=== PATIENT | male | born 1960 | race African-American/Black ===

== ENCOUNTER 2023-08-24 13:10 | Inpatient (IN) | payer OTHER ==
[~2023-08-24] VITALS: Ht 185.4 cm; Wt 149.8 kg
[~2023-08-24 13:10] MED LIST: ALBU18HF12 IH; APIX5TAB PO; ARIP20TA21 PO; ATOR20TA PO; BUDE10.2 IH; FERR325T23 PO; FLUO20CA36 PO; FURO20 PO; GABA-1181 PO; GLIP5TAB16 PO; LOSA-381 PO; METO-558 PO; METO25XL PO; MONT-35 PO; MULT-1203 PO; QUET150T15 PO
[2023-08-24 13:19] VITALS: PULSE 89; RESP 23; O2SAT 96
[2023-08-24 13:30] VITALS: PULSE 103; RESP 26; O2SAT 91
[2023-08-24] MEDS: IPRATROPIUM BROMIDE 0.5 MG/2.5 ML NEB SOLUTION NEB ONE (13:30)
[2023-08-24] MEDS: ALBUTEROL SULFATE 2.5 MG/0.5 ML 5 ML NEB SOLUTION NEB ONE (13:30)
[2023-08-24] MEDS: MethylPREDNISolone SOD SUCC 125 MG/2 ML VIAL IVP ONE (13:32)
[2023-08-24] MEDS: FUROSEMIDE 40 MG/4 ML VIAL IVP ONE (13:33)
[2023-08-24 13:38] LABS: BASOPHILS % (AUTO) 0.5 % (0.0-2.0); EOSINOPHILS % (AUTO) 0.4 % (1.0-6.0); HEMATOCRIT 37.9 % (41-53); HEMOGLOBIN 11.9 g/dL (13.5-17.5); LYMPHOCYTES # (AUTO) 0.8 K/uL (1.0-4.8); LYMPHOCYTES % (AUTO) 15.3 % (22.0-44.0); MEAN CORPUSCULAR HEMOGLOBIN 28.5 pg (26.0-34.0); MEAN CORPUSCULAR HGB CONC 31.4 G/dL (31.0-37.0); MEAN CORPUSCULAR VOLUME 91 fL (80-100); MONOCYTES # (AUTO) 0.6 K/uL (0.1-1.0); MONOCYTES % (AUTO) 10.2 % (2.0-9.0); NEUTROPHILS % (AUTO) 73.6 % (40.0-70.0); PLATELET COUNT (AUTO) 150 K/uL (150-450); RED BLOOD CELL COUNT(AUTO) 4.17 MIL/uL (4.50-5.90); RED CELL DISTRIBUTION WIDTH 17.1 % (11.5-14.5); WHITE BLOOD COUNT (AUTO) 5.4 K/uL (4.5-11.0)
[2023-08-24 13:46] LABS: CALCIUM, TOTAL 9.2 mg/dL (8.8-10.5); CREATININE 2.72 mg/dL (0.60-1.30)
[2023-08-24 13:49] LABS: INR 1.3 (0.9-1.1); PROTHROMBIN TIME 12.9 SEC (9.4-11.6)
[2023-08-24 13:54] LABS: LACTIC ACID 1.3 mmol/L (0.4-2.0)
[2023-08-24 13:57] LABS: TROPONIN I-HIGH SENSITIVITY 1542 ng/L (<76)
[2023-08-24 14:00] VITALS: PULSE 98; RESP 27; O2SAT 99
[2023-08-24 14:00] LABS: ALCOHOL, BLOOD (SERUM) < 3 mg/dL (0-10)
[2023-08-24 14:11] LABS: ALBUMIN 3.2 g/dL (3.4-5.0); BILIRUBIN,TOTAL 1.7 mg/dL (0.1-1.0); TOTAL PROTEIN, SERUM 7.2 g/dL (6.4-8.2)
[2023-08-24 14:11] LABS: INFLUENZA A-RTPCR,COMBO NEGATIVE (NEGATIVE); INFLUENZA B-RTPCR,COMBO NEGATIVE (NEGATIVE); RESPIRATORY SYNCYTIAL VRS-PCR NEGATIVE (NEGATIVE); SARS COVID19 RTPCR, COMBO NEGATIVE (NEGATIVE)
[2023-08-24] MEDS ORDERED: HEPARIN SODIUM,PORCINE 5,000 UNITS/ML VIAL IVP PRN ×2 (14:30)
[2023-08-24] MEDS: HEPARIN SODIUM 25000 UNITS/D5W 250 ML IV PRN (14:45)
[2023-08-24 14:54] LABS: ALCOHOL, URINE DRUG SCREEN NEGATIVE (NEGATIVE); AMPHET/METH SCREEN,URINE NEGATIVE (NEGATIVE); BARBITURATE SCREEN, URINE NEGATIVE (NEGATIVE); BENZODIAZEPINES SCREEN,URINE NEGATIVE (NEGATIVE); CANNABINOID SCREEN,URINE POSITIVE (NEGATIVE); COCAINE SCREEN,URINE NEGATIVE (NEGATIVE); METHADONE SCREEN, URINE NEGATIVE (NEGATIVE); OPIATE SCREEN,URINE NEGATIVE (NEGATIVE); PHENCYCLIDINE SCREEN,URINE NEGATIVE (NEGATIVE)
[2023-08-24 15:01] LABS: APPEARANCE,URINE TURBID (CLEAR); COLOR,URINE DARK YELLOW (YELLOW); GLUCOSE, URINE (UA) 70-100 mg/dL (NEGATIVE); KETONES,URINE NEGATIVE (NEGATIVE); LEUKOCYTE ESTERASE ,URINE NEGATIVE (NEGATIVE); NITRATE,URINE NEGATIVE (NEGATIVE); OCCULT BLOOD,URINE TRACE (NEGATIVE); PROTEIN,URINE >600,SEE CONFIRM mg/dL (NEGATIVE); SPECIFIC GRAVITIY, URINE 1.032 (1.003-1.030)
[2023-08-24 15:04] LABS: BILIRUBIN,URINE SMALL (NEGATIVE)
[2023-08-24 15:16] LABS: SULFOSALICYLIC ACID,URINE 4+ (Negative)
[2023-08-24 15:18] LABS: BACTERIA,URINE Few /HPF (None Seen); RBC,URINE 0-2 /HPF (0-2); SQUAMOUS EPITHELIAL CELL,UR Few /LPF (None Seen); WBC,URINE 0-2 /HPF (0-5)
[2023-08-24 15:19] LABS: COARSE GRANULAR CASTS,URINE 0-2 /LPF (None Seen)
[2023-08-24 17:15] VITALS: BP 124/80; PULSE 98; RESP 18; TEMP 98.1
[2023-08-24 18:31] LABS: TROPONIN I-HIGH SENSITIVITY 1969 ng/L (<76)
[2023-08-24] MEDS ORDERED: PNEUMOCOCCAL VACCINE POLYVALENT 0.5 ML SYRINGE [PPSV23] IM. ONE (19:30)
[2023-08-24 20:00] VITALS: BP 132/85; PULSE 91; RESP 16; TEMP 97.8
[2023-08-24] MEDS ORDERED: MAGNESIUM HYDROXIDE SUSPENSION 30 ML UDCUP PO PRN (22:00)
[2023-08-24] MEDS ORDERED: ONDANSETRON HCL 4 MG/2 ML VIAL IVP PRN (22:00)
[2023-08-24] MEDS ORDERED: MORPHINE SULFATE 2 MG/ML SYRINGE IVP PRN (22:00)
[2023-08-24] MEDS ORDERED: BISACODYL 10 MG RECTAL RECTAL SUPPOSITORY PR PRN (22:00)
[2023-08-24] MEDS ORDERED: ZOLPIDEM TARTRATE 5 MG TABLET PO PRN (22:00)
[2023-08-24] MEDS ORDERED: DEXTROSE 50%-WATER 25 GM/50 ML SYRINGE IVP PRN (22:00)
[2023-08-24] MEDS ORDERED: HYDROCODONE/ACETAMINOPHEN 5-325 MG TABLET PO PRN (22:00)
[2023-08-24] MEDS ORDERED: ACETAMINOPHEN 325 MG TABLET PO PRN (22:00)
[2023-08-25] VITALS (11 sets, daily range): BP systolic 90–127; BP diastolic 41–79; PULSE 68–89; RESP 18–24; TEMP 97.5–98.2; O2SAT 94–99
[2023-08-25 05:06] LABS: BASOPHILS % (AUTO) 0.1 % (0.0-2.0); EOSINOPHILS % (AUTO) 0 % (1.0-6.0); HEMATOCRIT 34.2 % (41-53); HEMOGLOBIN 10.9 g/dL (13.5-17.5); LYMPHOCYTES # (AUTO) 0.3 K/uL (1.0-4.8); LYMPHOCYTES % (AUTO) 8.9 % (22.0-44.0); MEAN CORPUSCULAR HEMOGLOBIN 28.9 pg (26.0-34.0); MEAN CORPUSCULAR HGB CONC 31.8 G/dL (31.0-37.0); MEAN CORPUSCULAR VOLUME 91 fL (80-100); MONOCYTES # (AUTO) 0.2 K/uL (0.1-1.0); MONOCYTES % (AUTO) 5.5 % (2.0-9.0); NEUTROPHILS # (AUTO) 3.3 K/uL (1.8-7.7); PLATELET COUNT (AUTO) 129 K/uL (150-450); RED BLOOD CELL COUNT(AUTO) 3.77 MIL/uL (4.50-5.90); WHITE BLOOD COUNT (AUTO) 3.9 K/uL (4.5-11.0)
[2023-08-25 05:46] LABS: NEUTROPHILS % (AUTO) 85.5 % (40.0-70.0)
[2023-08-25] MEDS: GlipiZIDE 5 MG TABLET PO SCH (06:38)
[2023-08-25 07:16] LABS: CALCIUM, TOTAL 8.3 mg/dL (8.8-10.5); CREATININE 3.28 mg/dL (0.60-1.30); POTASSIUM 4.5 mmol/L (3.5-5.1)
[2023-08-25] MEDS: INSULIN LISPRO 100 UNITS/ML SQ PRN (07:20)
[2023-08-25 07:26] LABS: TROPONIN I-HIGH SENSITIVITY 1510 ng/L (<76)
[2023-08-25] MEDS: ALBUTEROL SULFATE 2.5 MG/0.5 ML NEB SOLUTION NEB PRN (08:55)
[2023-08-25] MEDS: IPRATROPIUM BROMIDE 0.5 MG/2.5 ML NEB SOLUTION NEB PRN (08:56)
[2023-08-25] MEDS ORDERED: FUROSEMIDE 40 MG/4 ML VIAL IVP SCH (09:00)
[2023-08-25] MEDS ORDERED: FUROSEMIDE 20 MG TABLET PO SCH (09:00)
[2023-08-25] MEDS: ATORVASTATIN CALCIUM 20 MG TABLET PO SCH (09:17)
[2023-08-25] MEDS: PANTOPRAZOLE SODIUM 40 MG DR TABLET PO SCH (09:17)
[2023-08-25] MEDS: GABAPENTIN 300 MG CAPSULE PO SCH (09:17)
[2023-08-25] MEDS: MONTELUKAST SODIUM 10 MG TABLET PO SCH (09:18)
[2023-08-25] MEDS: METOPROLOL SUCCINATE 50 MG ER TABLET PO SCH (09:18)
[2023-08-25] MEDS: LOSARTAN POTASSIUM 25 MG TABLET PO SCH (09:18)
[2023-08-25] MEDS: MULTIVITAMINS, THERAPEUTIC TABLET PO SCH (09:18)
[2023-08-25] MEDS: FLUoxetine HCL 20 MG CAPSULE PO SCH (09:18)
[2023-08-25] MEDS: HEPARIN SODIUM 25000 UNITS/D5W 250 ML IV PRN (10:27)
[2023-08-25] MEDS: SODIUM CHLORIDE 0.9% 250 ML IV ONE (11:27)
[2023-08-25] MEDS: FUROSEMIDE 40 MG/4 ML VIAL IVP ONE (16:55)
[2023-08-25] MEDS: MethylPREDNISolone SOD SUCC 125 MG/2 ML VIAL IVP SCH (17:52)
[2023-08-25] MEDS: HEPARIN SODIUM,PORCINE 5,000 UNITS/ML VIAL IVP PRN (17:53)
[2023-08-25] MEDS: QUEtiapine FUMARATE 50 MG ER TABLET PO SCH (21:22)
[2023-08-26] VITALS (9 sets, daily range): BP systolic 92–110; BP diastolic 55–70; PULSE 78–98; RESP 18–22; TEMP 97.1–98.1; O2SAT 94–95
[2023-08-26 01:35] LABS: GLUCOMETER DEV NAME(LOC) 5N.2C; GLUCOSE,POINT OF CARE 152 MG/DL (70-110)
[2023-08-26 01:35] LABS: GLUCOMETER DEV NAME(LOC) 5N.2C; GLUCOSE,POINT OF CARE 78 MG/DL (70-110)
[2023-08-26 01:36] LABS: GLUCOMETER DEV NAME(LOC) 5N.2C; GLUCOSE,POINT OF CARE 104 MG/DL (70-110)
[2023-08-26 01:36] LABS: GLUCOMETER DEV NAME(LOC) 5N.2C; GLUCOSE,POINT OF CARE 129 MG/DL (70-110)
[2023-08-26 06:46] LABS: BASOPHILS % (AUTO) 0.1 % (0.0-2.0); EOSINOPHILS % (AUTO) 0 % (1.0-6.0); HEMATOCRIT 33.6 % (41-53); HEMOGLOBIN 10.7 g/dL (13.5-17.5); LYMPHOCYTES # (AUTO) 0.2 K/uL (1.0-4.8); LYMPHOCYTES % (AUTO) 6.5 % (22.0-44.0); MEAN CORPUSCULAR HEMOGLOBIN 29.1 pg (26.0-34.0); MEAN CORPUSCULAR HGB CONC 31.8 G/dL (31.0-37.0); MEAN CORPUSCULAR VOLUME 91 fL (80-100); MONOCYTES # (AUTO) 0.1 K/uL (0.1-1.0); MONOCYTES % (AUTO) 1.5 % (2.0-9.0); NEUTROPHILS # (AUTO) 3.5 K/uL (1.8-7.7); PLATELET COUNT (AUTO) 122 K/uL (150-450); RED BLOOD CELL COUNT(AUTO) 3.68 MIL/uL (4.50-5.90); RED CELL DISTRIBUTION WIDTH 16.9 % (11.5-14.5); WHITE BLOOD COUNT (AUTO) 3.8 K/uL (4.5-11.0)
[2023-08-26 06:53] LABS: NEUTROPHILS % (AUTO) 91.9 % (40.0-70.0)
[2023-08-26 06:59] LABS: CALCIUM, TOTAL 7.7 mg/dL (8.8-10.5); CREATININE 4.14 mg/dL (0.60-1.30); PHOSPHORUS 6.5 mg/dL (2.5-4.9); POTASSIUM 4.5 mmol/L (3.5-5.1)
[2023-08-26 07:09] LABS: TROPONIN I-HIGH SENSITIVITY 1324 ng/L (<76)
[2023-08-26 08:25] LABS: GLUCOMETER DEV NAME(LOC) 5N.2C; GLUCOSE,POINT OF CARE 251 MG/DL (70-110)
[2023-08-26] MEDS: ASPIRIN 81 MG DR TABLET PO SCH (09:56)
[2023-08-26] MEDS: ATORVASTATIN CALCIUM 40 MG TABLET PO SCH (09:57)
[2023-08-27] VITALS: BP 116/57; PULSE 75; RESP 20
[2023-08-27 00:56] LABS: GLUCOMETER DEV NAME(LOC) 5S.2C; GLUCOSE,POINT OF CARE 276 MG/DL (70-110)
[2023-08-27 00:56] LABS: GLUCOMETER DEV NAME(LOC) 5S.2C; GLUCOSE,POINT OF CARE 273 MG/DL (70-110)
[2023-08-27 00:56] LABS: GLUCOMETER DEV NAME(LOC) 5S.2C; GLUCOSE,POINT OF CARE 283 MG/DL (70-110)
[2023-08-27 01:00] LABS: APPEARANCE,URINE HAZY (CLEAR); BILIRUBIN,URINE NEGATIVE (NEGATIVE); COLOR,URINE YELLOW (YELLOW); GLUCOSE, URINE (UA) TRACE mg/dL (NEGATIVE); KETONES,URINE NEGATIVE (NEGATIVE); LEUKOCYTE ESTERASE ,URINE NEGATIVE (NEGATIVE); NITRATE,URINE NEGATIVE (NEGATIVE); OCCULT BLOOD,URINE NEGATIVE (NEGATIVE); PROTEIN,URINE 30-70 mg/dL (NEGATIVE); SPECIFIC GRAVITIY, URINE 1.019 (1.003-1.030); UROBILINOGEN,URINE <=1.0 mg/dL (<=1.0)
[2023-08-27 01:04] LABS: CREATININE,URINE RANDOM 345.9 mg/dL (30.0-125.0); PROTEIN,URINE RANDOM 96 mg/dL (0-11.9); SODIUM,URINE RANDOM 6 mmol/l (20-110); UREA NITROGEN,URINE RANDOM 333 mg/dL (350-1000)
[2023-08-27 01:33] LABS: BACTERIA,URINE None Seen /HPF (None Seen); RBC,URINE 0-2 /HPF (0-2); SQUAMOUS EPITHELIAL CELL,UR Few /LPF (None Seen); WBC,URINE 0-2 /HPF (0-5)
[2023-08-27 04:26] VITALS: BP 113/55; PULSE 72; RESP 20
[2023-08-27 05:50] LABS: GLUCOMETER DEV NAME(LOC) 5N.2C; GLUCOSE,POINT OF CARE 206 MG/DL (70-110)
[2023-08-27 07:59] VITALS: BP 130/70; PULSE 51; RESP 18; TEMP 98
[2023-08-27 08:25] LABS: CALCIUM, TOTAL 7.7 mg/dL (8.8-10.5); CREATININE 4.76 mg/dL (0.60-1.30); MAGNESIUM 2.2 mg/dL (1.80-2.40); PHOSPHORUS 6.1 mg/dL (2.5-4.9); POTASSIUM 4.5 mmol/L (3.5-5.1)
[2023-08-27] MEDS: SODIUM CHLORIDE 0.9% 1,000 ML IV SCH (09:16)
[2023-08-27 11:15] VITALS: BP 117/72; PULSE 82; RESP 20; TEMP 97.4
[2023-08-27 14:39] VITALS: BP 114/72; PULSE 50; TEMP 97.5
[2023-08-27 19:50] VITALS: BP 114/47; PULSE 57; RESP 20; TEMP 96.8
[2023-08-27 23:10] LABS: GLUCOMETER DEV NAME(LOC) 5S.2C; GLUCOSE,POINT OF CARE 319 MG/DL (70-110)
[2023-08-27 23:10] LABS: GLUCOMETER DEV NAME(LOC) 5N.2C; GLUCOSE,POINT OF CARE 250 MG/DL (70-110)
[2023-08-27 23:10] LABS: GLUCOMETER DEV NAME(LOC) 5N.2C; GLUCOSE,POINT OF CARE 232 MG/DL (70-110)
[2023-08-28] VITALS (8 sets, daily range): BP systolic 100–169; BP diastolic 51–94; PULSE 52–114; RESP 18–22; TEMP 97.3–98.2; O2SAT 96
[2023-08-28 07:32] LABS: EOSINOPHILS % (AUTO) 0 % (1.0-6.0); HEMATOCRIT 34.1 % (41-53); HEMOGLOBIN 10.8 g/dL (13.5-17.5); LYMPHOCYTES # (AUTO) 0.2 K/uL (1.0-4.8); LYMPHOCYTES % (AUTO) 4.4 % (22.0-44.0); MEAN CORPUSCULAR HEMOGLOBIN 28.8 pg (26.0-34.0); MEAN CORPUSCULAR HGB CONC 31.7 G/dL (31.0-37.0); MEAN CORPUSCULAR VOLUME 91 fL (80-100); MONOCYTES # (AUTO) 0.1 K/uL (0.1-1.0); MONOCYTES % (AUTO) 1.8 % (2.0-9.0); NEUTROPHILS # (AUTO) 3.5 K/uL (1.8-7.7); PLATELET COUNT (AUTO) 105 K/uL (150-450); RED BLOOD CELL COUNT(AUTO) 3.75 MIL/uL (4.50-5.90); RED CELL DISTRIBUTION WIDTH 16.8 % (11.5-14.5); WHITE BLOOD COUNT (AUTO) 3.7 K/uL (4.5-11.0)
[2023-08-28 07:40] LABS: CALCIUM, TOTAL 7.8 mg/dL (8.8-10.5); CREATININE 4.57 mg/dL (0.60-1.30); POTASSIUM 4.4 mmol/L (3.5-5.1)
[2023-08-28 07:51] LABS: NEUTROPHILS % (AUTO) 93.8 % (40.0-70.0)
[2023-08-28 17:55] LABS: CALCIUM, TOTAL 7.9 mg/dL (8.8-10.5); CREATININE 4.32 mg/dL (0.60-1.30); MAGNESIUM 2.1 mg/dL (1.80-2.40); PHOSPHORUS 5.6 mg/dL (2.5-4.9); POTASSIUM 5.4 mmol/L (3.5-5.1)
[2023-08-28 20:21] LABS: GLUCOMETER DEV NAME(LOC) 5S.2C; GLUCOSE,POINT OF CARE 281 MG/DL (70-110)
[2023-08-28 20:21] LABS: GLUCOMETER DEV NAME(LOC) 5S.2C; GLUCOSE,POINT OF CARE 238 MG/DL (70-110)
[2023-08-28 20:21] LABS: GLUCOMETER DEV NAME(LOC) 5S.2C; GLUCOSE,POINT OF CARE 242 MG/DL (70-110)
[2023-08-29] VITALS (8 sets, daily range): BP systolic 121–170; BP diastolic 70–104; PULSE 69–109; RESP 18–20; TEMP 97.5–98.2; O2SAT 94–95
[2023-08-29 06:58] LABS: EOSINOPHILS % (AUTO) 0.1 % (1.0-6.0); HEMOGLOBIN 10.9 g/dL (13.5-17.5); LYMPHOCYTES # (AUTO) 0.1 K/uL (1.0-4.8); LYMPHOCYTES % (AUTO) 4.8 % (22.0-44.0); MEAN CORPUSCULAR HEMOGLOBIN 28.9 pg (26.0-34.0); MEAN CORPUSCULAR VOLUME 91 fL (80-100); MONOCYTES # (AUTO) 0.1 K/uL (0.1-1.0); MONOCYTES % (AUTO) 2.4 % (2.0-9.0); NEUTROPHILS # (AUTO) 2.8 K/uL (1.8-7.7); PLATELET COUNT (AUTO) 101 K/uL (150-450); RED BLOOD CELL COUNT(AUTO) 3.75 MIL/uL (4.50-5.90); RED CELL DISTRIBUTION WIDTH 16.9 % (11.5-14.5)
[2023-08-29 07:03] LABS: NEUTROPHILS % (AUTO) 92.7 % (40.0-70.0)
[2023-08-29] MEDS: HEPARIN SODIUM,PORCINE 5,000 UNITS/ML VIAL IVP PRN (08:51)
[2023-08-29 12:01] LABS: GLUCOMETER DEV NAME(LOC) 5N.2C; GLUCOSE,POINT OF CARE 291 MG/DL (70-110)
[2023-08-29 12:01] LABS: GLUCOMETER DEV NAME(LOC) 5N.2C; GLUCOSE,POINT OF CARE 297 MG/DL (70-110)
[2023-08-29 12:01] LABS: GLUCOMETER DEV NAME(LOC) 5N.2C; GLUCOSE,POINT OF CARE 326 MG/DL (70-110)
[2023-08-29 15:36] LABS: CALCIUM, TOTAL 7.8 mg/dL (8.8-10.5); CREATININE 3.99 mg/dL (0.60-1.30); POTASSIUM 4.9 mmol/L (3.5-5.1)
[2023-08-29] MEDS: METOPROLOL SUCCINATE 25 MG ER TABLET PO SCH (16:22)
[2023-08-29 17:50] LABS: GLUCOMETER DEV NAME(LOC) 5S.2C; GLUCOSE,POINT OF CARE 390 MG/DL (70-110)
[2023-08-29] MEDS: PredniSONE 20 MG TABLET PO ONE (20:06)
[2023-08-29] MEDS: INSULIN LISPRO 100 UNITS/ML SQ ONE (22:48)
[2023-08-29 23:01] LABS: GLUCOMETER DEV NAME(LOC) 5S.2C; GLUCOSE,POINT OF CARE 464 MG/DL (70-110)
[2023-08-30] VITALS (8 sets, daily range): BP systolic 122–135; BP diastolic 77–95; PULSE 42–118; RESP 17–20; TEMP 96.5–98.1; O2SAT 95–97
[2023-08-30 07:20] LABS: GLUCOMETER DEV NAME(LOC) 5N.2C; GLUCOSE,POINT OF CARE 351 MG/DL (70-110)
[2023-08-30] MEDS: PredniSONE 20 MG TABLET PO SCH (08:37)
[2023-08-30 10:40] LABS: HEMATOCRIT 33.8 % (41-53); HEMOGLOBIN 10.8 g/dL (13.5-17.5); MEAN CORPUSCULAR HEMOGLOBIN 28.7 pg (26.0-34.0); MEAN CORPUSCULAR HGB CONC 32.1 G/dL (31.0-37.0); MEAN CORPUSCULAR VOLUME 90 fL (80-100); PLATELET COUNT (AUTO) 93 K/uL (150-450); RED BLOOD CELL COUNT(AUTO) 3.77 MIL/uL (4.50-5.90); RED CELL DISTRIBUTION WIDTH 17.3 % (11.5-14.5); WHITE BLOOD COUNT (AUTO) 4.5 K/uL (4.5-11.0)
[2023-08-30 11:37] LABS: BAND NEUTROPHILS % (MANUAL) 2 % (0-5); LYMPHOCYTES % (MANUAL) 15 % (22-44); MONOCYTES % (MANUAL) 1 % (2-9); SEGMENTED NEUTROPHILS % 82 % (40-70); TOTAL CELLS COUNTED 100
[2023-08-30 11:38] LABS: RBC MORPHOLOGY COMMENT NORMAL RBC MORPH
[2023-08-30 21:35] LABS: GLUCOMETER DEV NAME(LOC) 5N.2C; GLUCOSE,POINT OF CARE 268 MG/DL (70-110)
[2023-08-30 21:36] LABS: GLUCOMETER DEV NAME(LOC) 5N.2C; GLUCOSE,POINT OF CARE 284 MG/DL (70-110)
[2023-08-30 21:40] LABS: GLUCOMETER DEV NAME(LOC) 5S.2C; GLUCOSE,POINT OF CARE 304 MG/DL (70-110)
[2023-08-31] VITALS (7 sets, daily range): BP systolic 135–150; BP diastolic 70–99; PULSE 70–106; RESP 18–20; TEMP 97.1–97.6; O2SAT 98
[2023-08-31 00:39] LABS: BASOPHILS % (AUTO) 0.2 % (0.0-2.0); EOSINOPHILS % (AUTO) 0.1 % (1.0-6.0); HEMATOCRIT 34.3 % (41-53); HEMOGLOBIN 10.9 g/dL (13.5-17.5); LYMPHOCYTES # (AUTO) 0.2 K/uL (1.0-4.8); MEAN CORPUSCULAR HEMOGLOBIN 28.4 pg (26.0-34.0); MEAN CORPUSCULAR HGB CONC 31.7 G/dL (31.0-37.0); MEAN CORPUSCULAR VOLUME 90 fL (80-100); MONOCYTES # (AUTO) 0.3 K/uL (0.1-1.0); MONOCYTES % (AUTO) 7.3 % (2.0-9.0); NEUTROPHILS # (AUTO) 4.2 K/uL (1.8-7.7); PLATELET COUNT (AUTO) 85 K/uL (150-450); RED BLOOD CELL COUNT(AUTO) 3.82 MIL/uL (4.50-5.90); RED CELL DISTRIBUTION WIDTH 16.9 % (11.5-14.5); WHITE BLOOD COUNT (AUTO) 4.8 K/uL (4.5-11.0)
[2023-08-31 00:43] LABS: NEUTROPHILS % (AUTO) 88.4 % (40.0-70.0)
[2023-08-31 08:10] LABS: BASOPHILS % (AUTO) 0.3 % (0.0-2.0); EOSINOPHILS % (AUTO) 0 % (1.0-6.0); HEMATOCRIT 33.3 % (41-53); HEMOGLOBIN 10.6 g/dL (13.5-17.5); LYMPHOCYTES # (AUTO) 0.5 K/uL (1.0-4.8); LYMPHOCYTES % (AUTO) 9.2 % (22.0-44.0); MEAN CORPUSCULAR HEMOGLOBIN 28.8 pg (26.0-34.0); MEAN CORPUSCULAR HGB CONC 31.9 G/dL (31.0-37.0); MEAN CORPUSCULAR VOLUME 90 fL (80-100); MONOCYTES # (AUTO) 0.4 K/uL (0.1-1.0); MONOCYTES % (AUTO) 8.7 % (2.0-9.0); NEUTROPHILS % (AUTO) 81.8 % (40.0-70.0); PLATELET COUNT (AUTO) 92 K/uL (150-450); RED CELL DISTRIBUTION WIDTH 16.4 % (11.5-14.5); WHITE BLOOD COUNT (AUTO) 4.9 K/uL (4.5-11.0)
[2023-08-31 08:27] LABS: CALCIUM, TOTAL 7.9 mg/dL (8.8-10.5); CREATININE 2.91 mg/dL (0.60-1.30); MAGNESIUM 1.8 mg/dL (1.80-2.40); PHOSPHORUS 4.7 mg/dL (2.5-4.9); POTASSIUM 4.4 mmol/L (3.5-5.1)
[2023-08-31 08:45] LABS: RBC MORPHOLOGY COMMENT NORMAL RBC MORPH
[2023-08-31] MEDS: PredniSONE 20 MG TABLET PO SCH (09:10)
[2023-08-31] MEDS: APIXABAN 2.5 MG TABLET PO SCH (20:45)
[2023-08-31 22:16] LABS: GLUCOMETER DEV NAME(LOC) 5S.2C; GLUCOSE,POINT OF CARE 289 MG/DL (70-110)
[2023-08-31 22:16] LABS: GLUCOMETER DEV NAME(LOC) 5S.2C; GLUCOSE,POINT OF CARE 182 MG/DL (70-110)
[2023-08-31 22:56] LABS: GLUCOMETER DEV NAME(LOC) 5N.2C; GLUCOSE,POINT OF CARE 293 MG/DL (70-110)
[2023-09-01] MEDS ORDERED: HEPARIN SODIUM,PORCINE 5,000 UNITS/ML VIAL SQ SCH
[2023-09-01 00:10] VITALS: BP 118/87; PULSE 114; RESP 18; TEMP 97.5
[2023-09-01 04:25] VITALS: BP 125/78; PULSE 81; RESP 17; TEMP 97.5
[2023-09-01 07:22] LABS: EOSINOPHILS % (AUTO) 0.2 % (1.0-6.0); HEMATOCRIT 33.2 % (41-53); HEMOGLOBIN 10.7 g/dL (13.5-17.5); LYMPHOCYTES # (AUTO) 0.5 K/uL (1.0-4.8); LYMPHOCYTES % (AUTO) 10.2 % (22.0-44.0); MEAN CORPUSCULAR HGB CONC 32.2 G/dL (31.0-37.0); MEAN CORPUSCULAR VOLUME 90 fL (80-100); MONOCYTES # (AUTO) 0.5 K/uL (0.1-1.0); MONOCYTES % (AUTO) 10.1 % (2.0-9.0); NEUTROPHILS # (AUTO) 3.9 K/uL (1.8-7.7); NEUTROPHILS % (AUTO) 79.5 % (40.0-70.0); PLATELET COUNT (AUTO) 89 K/uL (150-450); RED BLOOD CELL COUNT(AUTO) 3.69 MIL/uL (4.50-5.90); RED CELL DISTRIBUTION WIDTH 16.7 % (11.5-14.5); WHITE BLOOD COUNT (AUTO) 4.9 K/uL (4.5-11.0)
[2023-09-01 07:55] LABS: RBC MORPHOLOGY COMMENT NORMAL RBC MORPH
[2023-09-01 08:00] VITALS: BP 126/92; PULSE 122; RESP 19; TEMP 98.1
[2023-09-01] MEDS: METOPROLOL SUCCINATE 25 MG ER TABLET PO SCH (08:45)
[2023-09-01 11:56] LABS: GLUCOMETER DEV NAME(LOC) 5N.2C; GLUCOSE,POINT OF CARE 163 MG/DL (70-110)
[2023-09-01 12:00] VITALS: BP 116/87; PULSE 115; RESP 18; TEMP 97.5
[2023-09-01 12:27] LABS: GLUCOMETER DEV NAME(LOC) 5S.1B; GLUCOSE,POINT OF CARE 136 MG/DL (70-110)
[2023-09-01] MEDS ORDERED: APIX2.5T PO (13:11)
== END 2023-09-01 17:10 | disposition home or self-care (01) | DRG 190 ==
LOC: EMS 13:12 → 5N 16:27
PROVIDERS: ADMIT Hospitalist; ATTEND Hospitalist
PROC: 5A09357 Assistance with Respiratory Ventilation, Less than 24 Consecutive Hours, Continuous Positive Airway Pressure (ICD-10-PCS; 2023-08-24)
PROC: 5A09357 Assistance with Respiratory Ventilation, Less than 24 Consecutive Hours, Continuous Positive Airway Pressure (ICD-10-PCS; principal; 2023-08-26)
PROC: 5A09357 Assistance with Respiratory Ventilation, Less than 24 Consecutive Hours, Continuous Positive Airway Pressure (ICD-10-PCS; 2023-08-27)
PROC: 5A09357 Assistance with Respiratory Ventilation, Less than 24 Consecutive Hours, Continuous Positive Airway Pressure (ICD-10-PCS; 2023-08-28)
PROC: 5A09357 Assistance with Respiratory Ventilation, Less than 24 Consecutive Hours, Continuous Positive Airway Pressure (ICD-10-PCS; 2023-08-29)
PROC: 5A09357 Assistance with Respiratory Ventilation, Less than 24 Consecutive Hours, Continuous Positive Airway Pressure (ICD-10-PCS; 2023-08-30)
DX: I21.4 Non-ST elevation (NSTEMI) myocardial infarction (principal); I50.23 Acute on chronic systolic (congestive) heart failure; D61.818 Other pancytopenia; N17.9 Acute kidney failure, unspecified; N18.6 End stage renal disease; I42.9 Cardiomyopathy, unspecified; I48.19 Other persistent atrial fibrillation; J44.1 Chronic obstructive pulmonary disease with (acute) exacerbation; E11.22 Type 2 diabetes mellitus with diabetic chronic kidney disease; I13.2 Hypertensive heart and chronic kidney disease with heart failure and with stage 5 chronic kidney disease, or end stage renal disease; Z20.822 Contact with and (suspected) exposure to COVID-19; E11.65 Type 2 diabetes mellitus with hyperglycemia; E66.01 Morbid (severe) obesity due to excess calories; F17.210 Nicotine dependence, cigarettes, uncomplicated; I08.1 Rheumatic disorders of both mitral and tricuspid valves; E78.5 Hyperlipidemia, unspecified; F20.9 Schizophrenia, unspecified; G47.33 Obstructive sleep apnea (adult) (pediatric); Z79.01 Long term (current) use of anticoagulants; Z79.899 Other long term (current) drug therapy; Z79.84 Long term (current) use of oral hypoglycemic drugs; Z86.711 Personal history of pulmonary embolism; Z68.41 Body mass index [BMI] 40.0-44.9, adult
CPT/HCPCS: 0241U; 71045; 71250; 76770; 80048; 80053; 80307; 81001; 81002; 82271; 82550; 82570; 82962; 83605; 83690; 83735; 83880; 84100; 84145; 84156; 84300; 84484; 84540; 85007; 85025; 85027; 85610; 85730; 87040; 93005; 94640; 94660; 99285; G0480; J1644; J1815; J1940; J2930; J7030; Q9967; 36415-L1; 36415-TC; J7613